=== PATIENT | female | born 1965 | race Caucasian/White ===

== ENCOUNTER 2021-01-07 17:16 | Emergency (ER) | payer OTHER ==
[~2021-01-07] VITALS: Ht 165.1 cm; Wt 95.2 kg
[~2021-01-07 17:16] MED LIST: LEVOTHYROXINE100 MCG PO; LEXAPRO10 MG PO; ZESTORETIC 10-1 EACH PO
[2021-01-07] MEDS ORDERED: ZOFRAN4 MG PO (22:20)
[2021-01-07] MEDS ORDERED: HYDROCODON-ACE1 EA10 PO (22:20)
== END 2021-01-07 22:25 | disposition home or self-care (01) ==
LOC: ED 17:16
DX: N13.2 Hydronephrosis with renal and ureteral calculous obstruction (principal)
CPT/HCPCS: 74176; 80053; 81001; 85025; 96374; 99284-25; J1885; J7030

== ENCOUNTER 2021-05-28 11:51 | Inpatient (IN) | payer OTHER ==
[~2021-05-28] VITALS: Ht 165.1 cm; Wt 94.1 kg
[~2021-05-28 11:51] MED LIST changes: +HYDROCODON-ACE1 EA10 PO; +ZOFRAN4 MG PO
[2021-05-28] MEDS ORDERED: ESCITALOPRAM OX10 MG PO (12:33)
[2021-05-28] MEDS ORDERED: LISINOPRIL40 MG PO (12:33)
[2021-05-28] MEDS ORDERED: SULFAMETHOXAZO1 EAC1 PO (12:33)
--- NOTE | 2021-05-28 21:00 | NUR ---
PT ADMITTED TO ROOM 115 VIA STRETCHER, REQUIRED ASSISTANCE TO GET FROM STRETCHER TO BED. DENIED NEED TO USE BATHROOM @ THIS TIME.
--- NOTE | 2021-05-28 21:15 | NUR ---
PT UNABLE TO STATE NAME OF PLACE, WHY SHE IS HERE, NOR HER DATE OF . 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 WAS TRYING TO VOMIT WHEN SHE ARRIVED TO FLOOR, WILL GIVE ZOFRAN. SAYS SHE HAS BEEN SICK SINCE SATURDAY.
--- NOTE | 2021-05-28 21:38 | NUR ---
PT RESTING IN BED WITH TECHNOLOGY EDUCATION TEACHER AT BEDSIDE COMPLETING ADMISSION PROCESS. PT DROWSY, WAKES EASILY TO VOICE. PT DISORIENTED TO TIME AND DATE. ORIENTED TO SELF, PLACE. STATES THAT PAIN IS WELL CONTROLLED AT THIS TIME. RATES 3/10. DENIES SOB. PT REPORTS NAUSEA. PRN ADMINISTERED, SEE EMAR. IV FLUSHED, WNL, PATENT. BED ALARM ACTIVATED. CALL LIGHT LEFT IN PT'S HAND. PT DENIES FURTHER NEEDS AT THIS TIME.
--- NOTE | 2021-05-28 21:45 | NUR ---
BED ALARMING. PATIENT GOT UP TO USE THE TOILET. 1 PA. PATIENT IS NOT WELL ORIENTED AND UNSTABLE. WE'LL USE THE BEDSIDE COMMODE FOR SAFETY. PATIENT IS BACK IN BED. BED ALARM ON FOR SAFETY.
--- NOTE | 2021-05-28 22:20 | NUR ---
BED ALARMING. WENT IN TO THE ROOM. PATIENT STILL LYING IN BED. PATIENT C/O NAUSEOUS. PRIMARY RN NOTIFIED AND WAS WITH PATIENT.
--- NOTE | 2021-05-28 22:30 | NUR ---
BED ALARM SOUNDING. IV PUMP FOUND TO BE ALARMING. PT REPORTS CONTINUED NAUSEA. PRN ADMINISTERED, SEE EMAR. PT STATES PAIN 3-4, STATES THIS IS TOLERABLE. DENIES FURTHER NEEDS. CALL LIGHT IN REACH. BED ALARM REMAINS ACTIVE.
--- NOTE | 2021-05-29 00:10 | NUR ---
PT RESTING IN BED AWAKE. DENIES PAIN OR NAUSEA. REPORTS DIFFICULTY SLEEPING. DENIES FURTHER NEEDS AT THIS TIME. CALL LIGHTIN REACH. BED ALARM ACTIVE.
--- NOTE | 2021-05-29 00:25 | NUR ---
BED ALARM SOUNDING. 1PA UP TO BSC AND BACK TO BED. PT REQUIRING FREQUENT DIRECTION TO TURN AND SIT. PT DENIES FURTHER NEEDS. BED ALARM REACTIVATED. CALL LIGHT IN REACH.
--- NOTE | 2021-05-29 02:03 | NUR ---
HEDDLER TIER TO ROOM FOR BED ALARM SOUNDING. PT NEEDS TO USE THE BATHROOM, UP TO BSC AND BACK TO BED WITH 1 PA. PT CONTINUES TO REQUIRE FREQUENT DIRECTION AND CUEING TO SAFELY TRANSFER TO COMMODE. PT ASSESSMENT COMPLETE. PT UNABLE TO ACCURATELY RECALL HER LAST NAME, OR DATE. VS OBTAINED. TEMP 100.6. PT REPORTS HER HEADACHE HAS RETURNED, RATES 8/10. PRN FOR FEVER AND PAIN ADMINISTERED. DENIES SOB OR NAUSEA. IVF INFUSING WNL. ICE WATER REFILLED. PT DENIES FURTHER NEEDS AT THIS TIME. CALL LIGHT IN REACH.
--- NOTE | 2021-05-29 02:28 | NUR ---
SELVAGE MACHINE OPERATOR TO ROOM FOR BED ALARM SOUNDING. PT UP TO BATHROOM AND BACK TO BED WITH 1 PA. WHEN ASKED IF HER HEADACHE FEELS IMPROVED PT STATES "I THINK SO". SELVAGE MACHINE OPERATOR ASKS IF RATING IS LESS THAN 8/10. PT STATES, YES. DENIES FURTHER NEEDS AT THIS TIME. BED ALARM REACTIVATED. CALL LIGHT IN REACH.
--- NOTE | 2021-05-29 04:37 | NUR ---
HYDRAULIC HAMMER OPERATOR TO ROOM FOR BED ALARM SOUNDING. PT SITTING UP AT EDGE OF BED ATTEMPTING TO EXIT BED. PT UP TO BSC AND BACK TO BED WITH 1 PA. PT REPORTS PAIN IS IMPROVED, RATES 5/10 AND STATES THIS IS TOLERABLE. PT ORIENTED TO SELF AND PRESIDENT, OTHERWISE DISORIENTED. VS OBTAINED, WNL. PT DENIES FURTHER NEEDS. BED ALARM REACTIVATED. CALL LIGHT IN REACH.
--- NOTE | 2021-05-29 07:33 | NUR ---
PT RESTING IN BED AT TIME OF SHIFT EXCHANGE. BED ALARM GOES OFF A SHORT TIME LATER PT SITTING ON EDGE OF BED AGREES SHE NEEDS TO VOID. PT UNSTEADY INITIALLY UPON STANDING, GRABS THIS ELECTROTHERAPIST TO CORRECT BALANCE. VOIDS WITH OUT DIFFICULTY APPEARS STEADY ON HER FEET RETURNING TO BED. FRESH H20 AT BEDSIDE PT LAYING DOWN WATCHING TV AT THIS TIME. PT APPEARS ORIENTED FOR THE MOST PART ABLE TO REPORT DATE AND REASON FOR HOSPITALIZATION. AGREES TO USE THE CALL LIGHT FOR OOB, ALARM IS SET FOR SAFETY.
--- NOTE | 2021-05-29 08:46 | NUR ---
PATIENT UP TO SHOWER, IND. PATIENT SHOWERING IND. CARMELLA CARE, SKIN CARE, SHAMPOO DONE. ORAL CARE SUPPLIES PROVIDED. LINENS CHANGED. IN ROOM. CALL LIGHT IN REACH. NO FURTHER NEEDS AT THIS TIME.
--- NOTE | 2021-05-29 09:07 | NUR ---
PT UP TO SHOWER SBA DOES SELF CARES THEN TO CHAIR. IS PRESENT IN THE ROOM. PT DENIES ANY DISCOMFORTS AT THIS TIME. TOLERATES CLEAR LIQUIDS.
--- NOTE | 2021-05-29 09:41 | NUR ---
PT RETURNS TO RESTING IN BED.
--- NOTE | 2021-05-29 10:50 | NUR ---
PATIENT IN BED RESTING WITH EYES CLOSED. BED ALARM ON. VITALS AND I&O'S DONE. CALL LIGHT IN REACH. NO FURTHER NEEDS AT THIS TIME.
--- NOTE | 2021-05-29 12:59 | NUR ---
Patient in bed eating lunch, alert and oriented. Patient reports a slight headache, declined pain medications. IV fluids running per provider order. Patient has no distress or needs. Call light within reach.
--- NOTE | 2021-05-29 16:55 | NUR ---
Zofran 4mg ivp admin for reports of nausea.
--- NOTE | 2021-05-29 17:58 | NUR ---
PATIENT SITTING UP EATING DINNER, IN ROOM. VITALS AND I&O'S CHARTED. CALL LIGHT IN REACH. NO FURTHER NEEDS AT THIS TIME.
--- NOTE | 2021-05-29 18:18 | NUR ---
Tylenol 650mg suppository admin for reports of head pain.
--- NOTE | 2021-05-29 19:10 | NUR ---
BEDSIDE REPORT RECEIVED FROM OFFGOING RNFRAN. PT RESTING IN BED WITH AT BEDSIDE. DENIES NEEDS. CALL LIGHT IN REACH.
--- NOTE | 2021-05-29 20:20 | NUR ---
PT ASSESSMENT COMPLETE. PT STATES PAIN AND NAUSEA ARE WELL CONTROLLED AT THIS TIME. DENIES SOB. ALERT AND ORIENTED X 4, NO S/SX OF CONFUSION PRESENT. PT UP TO BATHROOM AND BACK TO BED WITH SBA. PT KNOWS OWN LIMITS, USING CALL LIGHT APPROPRIATELY, BED ALARM NOT SET AT THIS TIME. SCHEDULED MEDICATION ADMINISTERED. SODA PROVIDED. IV FLUSHED. WNL. PATENT. PT DENIES FURTHER NEEDS AT THIS TIME. CALL LIGHT IN REACH.
--- NOTE | 2021-05-29 22:00 | NUR ---
PT RESTINGIN BED WITH EYES CLOSED. PT SNORING AUDIBLY. DOES NOT WAKE WHILE WRTIER AT DOORWAY. CALL LIGHT IN REACH.
--- NOTE | 2021-05-29 23:30 | NUR ---
PT UTLIZES CALL LIGHT, REQUESTS TO USE THE BATHROOM. UP TO BATHROOM AND BACK TO BED WITH 1 PA. TOLERATED WELL. WARM BLANKET PROVIDED. FURTHER NEEDS DENIED. CALL LIGHT IN REACH.
--- NOTE | 2021-05-30 01:00 | NUR ---
PT RESTING IN BED WITH EYES CLOSED. WAKES EASILY WHEN WILDLIFE CONTROL OPERATOR OPENS THE DOOR. DENIES NEEDS AT THIS TIME. CALL LIGHT IN REACH.
--- NOTE | 2021-05-30 03:46 | NUR ---
PATIENT CALLED TO USE THE RESTROOM. SBA. PATIENT IS BACK IN BED SITTING AT THE EDGE. ICE WATER REFILLED. DENIES FURTHER NEEDS AT THIS TIME.
--- NOTE | 2021-05-30 04:15 | NUR ---
PT ASSESSMENT COMPLETE. PT UP TO BATHROOM AND BACK TO BED WITH CONSUMER INSIGHT MANAGER ASSISTANCE. PT STATES THAT PAIN IS WELL CONTROLLED. DENIES SOB OR NAUSEA. PT ALERT AND ORIENTED X 4. ICE WATER REFILLED. DENIES FURTHER NEEDS AT THIS TIME. CALL LIGHT WITHIN REACH.
--- NOTE | 2021-05-30 06:27 | NUR ---
PT REPORTS INCREASED HEADACHE PAIN, RATES 7/10. PRN ADMINISTERED, SEE EMAR. DURING ADMINISTRATION OF SUPP. MEDICATION PT REPORTS INCREASED PERINEAL PAIN TO TOUCH. PT BELIEVES THIS IS DUE TO UTI. DENIES FURTHER NEEDS AT THIS TIME. CALL LIGHT IN REACH.
--- NOTE | 2021-05-30 07:04 | NUR ---
CALL LIGHT ANSWERED. SBA TO THE BATHROOM AND BACK TO BED. NO OTHER NEEDS AT THIS TIME.
--- NOTE | 2021-05-30 09:09 | NUR ---
Patient sitting up in bed snacking on food. Patient reports she feels a bit better today, head pain has improved per her report. No nausea at this time. visiting at bedside. Patient has no needs at this time. Personal supplies and call light within reach.
--- NOTE | 2021-05-30 10:07 | NUR ---
PATIENT IN BED RESTING, RN IN ROOM. VITALS AND I&O'S CHARTED. WARM WASHCLOTH GIVEN EARLIER. CALL LIGHT IN REACH. NO FURTHER NEEDS AT THIS TIME.
--- NOTE | 2021-05-30 11:10 | NUR ---
Pt lives with spouse, Jose, in [place] in a 1 story home. 0 steps into home. Pt is not using 02 or any DME at home or here. Plans on dc to home when cleared medically. Spouse is EMT and plans on taking a few days off to stay with . Both deny needs for dc.
[2021-05-30] MEDS ORDERED: VITAMIN D3125 MC2 PO (11:12)
--- NOTE | 2021-05-30 11:12 | NUR ---
MED REC COMPLETE
--- NOTE | 2021-05-30 14:32 | NUR ---
PATIENT IND. IN ROOM AND HAS BEEN UP TO BATHROOM. PATIENT IN BED RESTING AT THIS TIME. VITALS AND I&O'S CHARTED. FRESH WATER GIVEN. CALL LIGHT IN REACH. NO FURTHER NEEDS AT THIS TIME.
--- NOTE | 2021-05-30 15:11 | NUR ---
aDMIN [place] 5/325mg po for reports of head pain, 04/08.
--- NOTE | 2021-05-30 17:38 | NUR ---
Patient eating dinner with . Pt reports her head pain is much improved now. No current needs. IV fluids running per provider order. Personal supplies and call light within reach.
--- NOTE | 2021-05-30 18:23 | NUR ---
PATIENT IN BED RESTING. VITALS AND I&O'S CHARTED. FRESH WATER GIVEN. CALL LIGHT IN REACH. NO FURTHER NEEDS AT THIS TIME.
--- NOTE | 2021-05-30 21:21 | NUR ---
pt RESTING IN BED AWAKE. pt RATES PAIN 5/10 IN HEAD. PRN PAIN MEDICATION ADMINISTERED REQUESTED. PRN SLEEP MEDICATION ADMINISTERED. NEURO CHECK WNL, ALERT AND ORIENTED TO ALL. pt DENIES NAUSEA. IV SITE FLUSHED WNL, IV ANTIBIOTIC INFUSING ORDERED. VSS. CALL LIGHT IN REACH.
--- NOTE | 2021-05-30 23:20 | NUR ---
CHECKED ON pt. RESTING IN BED ON SIDE. BREATHING EQUAL AND UNLABORED. LIGHTS OFF IN ROOM.
--- NOTE | 2021-05-31 02:49 | NUR ---
pt RESTING IN BED ON RIGHT SIDE. BREATHING EQUAL AND UNLABORED. LIGHTS OFF IN ROOM.
--- NOTE | 2021-05-31 05:54 | NUR ---
pt AWAKE RESTING IN BED. DENIES ANY PAIN. ASSESSMENT COMPLETE. NEURO CHECK WNL. pt STATES RESTED WELL. INDEPENDENT TO RESTROOM FOR VOID. IVF INFUSING WNL. SCHEDULED MEDICATION ADMINISTERED. VSS. CALL LIGHT IN REACH. ICE WATER PROVIDED.
--- NOTE | 2021-05-31 07:23 | NUR ---
PT AWAKE IN ROOM. PT DECLINED WARM CLOTH FOR FACE. PT REQUESTS SHOWER, RESTROOM SET UP. PT HAD IV WRAPPED AND IS INDEPENDENT IN THE ROOM. WHITE BOARD UPDATED. CALL LIGHT WITHIN REACH. PT REPORTS NAUSEA, RN IVIS NOTIFIED. CALL LIGHT WITHIN REACH. NO FURTHER NEEDS AT THIS TIME.
--- NOTE | 2021-05-31 07:39 | NUR ---
REPORT RECIEVED. PT IN BED AWAKE. REPORTS SOME NAUSEA. ZOFRAN ADMINISTERED. SALINE LOCKED FOR SHOWER. CALL LIGHT IN REACH.
--- NOTE | 2021-05-31 09:31 | NUR ---
ASSESSMENT COMPLETED. LUNGS CLEAR. HEART SOUNDS REGULAR. PT DENIES PAIN OR HEADACHE. NAUSEA IMPROVED WITH ZOFRAN. BOWEL TONES ACTIVE. NO NEURO DEFICITS. NO N/T OF WEAKNESS. CALL LIGHT IN REACH.
--- NOTE | 2021-05-31 10:30 | NUR ---
Notified by Dr. Ramírez off need to notify [facility] Dept. of Viral meningitis of this pt. Called and spoke with Laxmi and also asked if the guideline is 2 weeks for the pt to return to work. This is the recommendation by CDC of 7-14 days. She will call me back. She requests chart sent with face sheet to [facility] fax [phone]. Will fax chart when dc summary completed. Dr Ramírez is calling Infectious disease at [facility] to clarify CSF culture showing possible contaminate.
[2021-05-31] MEDS ORDERED: HYDROCODON-ACE1 EA10 PO (12:01)
--- NOTE | 2021-05-31 13:30 | NUR ---
DISCHARGE INSTRUCTIONS PROVIDED. PT WITH NO QUESTIONS. IV DC'S AND WNL. WHEELED OUT BACK DOOR.
--- NOTE | 2021-05-31 13:35 | NUR ---
[place] call from Laxmi from [facility] [place] [place] she has [place] the fax of the [place] and will call back for with recommendation for time period when pt may return to work. Dr. Ramírez updated.
--- NOTE | 2021-05-31 14:11 | NUR ---
Received call from Laxmi MATHIAS [facility]. 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 Dr. Ramírez updated. This was also the report from Infectious disease at [facility].
== END 2021-05-31 13:30 | disposition home or self-care (01) | DRG 76 ==
LOC: ED 11:51 → MS 11:53
PROVIDERS: ADMIT Internal Medicine; ATTEND Internal Medicine
PROC: 009U3ZX Drainage of Spinal Canal, Percutaneous Approach, Diagnostic (ICD-10-PCS; principal; 2021-05-28)
DX: A87.9 Viral meningitis, unspecified (principal); E03.9 Hypothyroidism, unspecified; I10 Essential (primary) hypertension; Z20.822 Contact with and (suspected) exposure to COVID-19; J02.9 Acute pharyngitis, unspecified; Z90.711 Acquired absence of uterus with remaining cervical stump; Z79.899 Other long term (current) drug therapy
CPT/HCPCS: 51701; 62270; 71045; 80048; 80053; 81001; 82945; 83605; 84157; 85025; 87040; 89051; 96375; 96376; 99285-25; G0378; J0696; J0780; J1885; J2250; J2405; J3480; J7030; J7121; U0003

== ENCOUNTER 2022-07-20 00:41 | Emergency (ER) | payer OTHER ==
[~2022-07-20] VITALS: Ht 165.1 cm; Wt 99.8 kg
[~2022-07-20 00:41] MED LIST changes: +ESCITALOPRAM OX10 MG PO; +LISINOPRIL40 MG PO; +SULFAMETHOXAZO1 EAC1 PO; +VITAMIN D3125 MC2 PO
[2022-07-20] MEDS ORDERED: MACROBID 100 M100 MG PO (03:24)
[2022-07-20] MEDS ORDERED: FLOMAX0.4 MG PO (03:24)
[2022-07-20] MEDS ORDERED: KETOROLAC TROME10 MG PO (03:24)
== END 2022-07-20 03:58 | disposition home or self-care (01) ==
LOC: ED 00:41
DX: N13.2 Hydronephrosis with renal and ureteral calculous obstruction (principal)
CPT/HCPCS: 36415; 74176; 80053; 81001; 84703; 85025; 87088; 96365; 96375; 99284-25; J0696; J1885; J2405; J7121